=== PATIENT | female | born 1950 | race Caucasian/White ===

== ENCOUNTER 2016-08-16 08:10 | Day surgery (SDC) | payer OTHER ==
[~2016-08-16 08:10] MED LIST: LACTATED RINGERS 1,000 ML IV SCH
[2016-08-16] MEDS ORDERED: LACTATED RINGERS 1,000 ML ONE (08:13)
[2016-08-16] MEDS ORDERED: IV START KIT ONE (08:13)
[2016-08-16] MEDS ORDERED: ONDANSETRON 4 MG/2ML 2 ML VIAL ONE (08:40)
[2016-08-16] MEDS ORDERED: LIDOCAINE 2% (PRES FREE) 5 ML VIAL ONE (08:41)
[2016-08-16] MEDS ORDERED: PROPOFOL 40 ML IV ONE (08:41)
[2016-08-16] MEDS ORDERED: ONDANSETRON 4 MG/2ML 2 ML VIAL IV ONE (08:46)
[2016-08-16] MEDS ORDERED: MIDAZOLAM HCL 1 MG/ML 2ML VIAL ONE (08:49)
--- NOTE | 2016-08-20 15:43 | SURGPATH ---
[facility] [address] [place] [id number] Patient Name: JAIME STEVENSON MR#: [id number] : 1950 Gender: F Specimen #: [id number] Collected: 08/16/2016 Received: 08/17/2016 Reported: 08/20/2016 Submitting Phys: DANIKA LAURA Copy To Phys: [facility] Clinical History / Pre-Operative Diagnosis: CHRONIC DIARRHEA WITH RECTAL BLEEDING; PERIUMBILICAL PAIN; RULE OUT COLITIS Specimen Source / Surgical Procedure Performed: #1-CECAL BIOPSY; #2-SIGMOID BIOPSY AT 30 CM Interpretation: 1. CECUM, BIOPSY: - NO PATHOLOGIC ABNORMALITY 2. SIGMOID COLON, BIOPSY: - CHRONIC SEVERELY ACTIVE COLITIS - NEGATIVE FOR DYSPLASIA Electronically Signed Out Eliecer Shaikh M.D. Gross Description: #1 The specimen is received in a formalin filled container labeled with the patient's name and "cecal biopsy". Two wallace biopsies are 0.4 and 0.5 cm. Totally embedded in cassette #1. #2 The specimen is received in a formalin filled container labeled with the patient's name and "sigmoid biopsy at 30 cm". Two jay-wallace biopsies are 0.4 and 0.5 cm. Totally embedded in cassette #2. Orlando Romano Microscopic Description: 1. Sections show normal colonic mucosa. 2. Sections show crypt distortion, increased mixed inflammatory cells including neutrophils in the lamina propria, and multifocal active inflammation with regenerative surface epithelium. This represents chronic colitis with severe activity. Dysplasia is absent. The findings are consistent with chronic inflammatory bowel disease. Please correlate clinically. 1: [id number] 2: [id number] [id number]
== END 2016-08-16 09:53 | disposition home or self-care (01) ==
LOC: SDC 08:10
PROVIDERS: ATTEND Internal Medicine Gastroenterology
PROC: 0DBN8ZX Excision of Sigmoid Colon, Via Natural or Artificial Opening Endoscopic, Diagnostic (ICD-10-PCS; principal; 2016-08-16)
DX: K51.90 Ulcerative colitis, unspecified, without complications (principal); Z88.0 Allergy status to penicillin; Z88.5 Allergy status to narcotic agent; Z91.041 Radiographic dye allergy status
CPT/HCPCS: 45380; J2250; J2405; J7120